=== PATIENT | male | born 1940 | race Caucasian/White ===

== ENCOUNTER → 2024-07-06 09:09 | Outpatient (REF) | payer OTHER, SELFPAY | LOC: PAVMRI 09:09 | PROVIDERS: ATTENDING PHYSICIAN Family Medicine | DX: G45.9 Transient cerebral ischemic attack, unspecified (principal); I70.0 Atherosclerosis of aorta | CPT/HCPCS: 70551 ==

== ENCOUNTER → 2024-07-08 08:03 | Outpatient (REF) | payer OTHER, SELFPAY | LOC: RAD 08:03 | PROVIDERS: ATTENDING PHYSICIAN Family Medicine | DX: G45.9 Transient cerebral ischemic attack, unspecified (principal); I70.0 Atherosclerosis of aorta; M19.011 Primary osteoarthritis, right shoulder; M19.012 Primary osteoarthritis, left shoulder | CPT/HCPCS: 73030; 93880 ==